=== PATIENT | male | born 1995 | race Hispanic/Latino ===

== ENCOUNTER 2024-10-03 19:42 | Emergency (ER) | payer SELFPAY ==
[~2024-10-03] VITALS: Ht 177.8 cm; Wt 78.5 kg
[~2024-10-03 19:42] MED LIST: CEFIXIME400 MG PO; CHLORDIAZEPOXID25 MG PO
[2024-10-03 20:20] VITALS: TEMP 98.3
[2024-10-03] MEDS ORDERED: SODIUM CHLORIDE 0.9% 1000ML 2,000 ML ONE (20:24)
[2024-10-03] MEDS: SODIUM CHLORIDE 0.9% 1000ML 2,000 ML IV STA ×2 (20:26→23:03)
[2024-10-03 20:35] LABS: BASOPHILS % 1.7 % (0.0-1.0); EOSINOPHILS % 3.2 % (0.0-6.0); LYMPHOCYTES % 37.8 % (18.0-39.1); MONOCYTES % 11.1 % (4.4-11.3); NEUTROPHILS % 46.0 % (38.7-80.0); RED CELL DISTRIBUTION WIDTH 14.4 % (11.7-14.4)
[2024-10-03 20:59] LABS: ETHANOL 259.0 mg/dL (0.0-10.0)
[2024-10-03 21:01] LABS: EST GLOMERULAR FILTRATION RATE 122.0 ML/MIN (>=60)
[2024-10-03 22:18] LABS: AMPHETAMINES SCREEN,URINE NEGATIVE (NEGATIVE); LEUKOCYTE ESTERASE ,URINE NEGATIVE (NEGATIVE); OPIATES SCREEN,URINE NEGATIVE (NEGATIVE); PROTEIN,URINE DIPSTICK 2+ (NEGATIVE)
[2024-10-03 22:19] LABS: CANNABINOIDS SCREEN,URINE NEGATIVE (NEGATIVE); COCAINE SCREEN,URINE NEGATIVE (NEGATIVE); METHADONE SCREEN, URINE NEGATIVE (NEGATIVE); URINE UROBILINOGEN 0.2 mg/dL (0.2 - 1)
[2024-10-03 22:25] LABS: EPITHELIAL CELLS,URINE FEW /LPF
[2024-10-03 22:26] LABS: CALCIUM OXALATE CRYSTALS,UR MODERATE (FEW)
[2024-10-04 00:37] VITALS: PULSE 89; RESP 19
[2024-10-04 00:42] VITALS: BP 149/102; PULSE 96; RESP 18; TEMP 98.1; O2SAT 96
== END 2024-10-04 00:46 | disposition home or self-care (01) ==
LOC: ER 19:49
DX: R10.13 Epigastric pain (principal); K29.70 Gastritis, unspecified, without bleeding; F10.10 Alcohol abuse, uncomplicated; F41.9 Anxiety disorder, unspecified
CPT/HCPCS: 36415; 80053; 80307; 80320; 81001; 83690; 85025; 99283; J7030